=== PATIENT | male | born 1970 | race Caucasian/White ===

== ENCOUNTER 2017-09-26 18:09 | Emergency (ER) | payer MEDICAID, OTHER ==
[2017-09-26] MEDS ORDERED: ASPIRIN 81 MG TABLET, CHEWABLE PO ONE (18:39)
[2017-09-26] MEDS ORDERED: OXYCODONE-ACETAMINOPHEN 5-325 MG TABLET PO ONE (18:40)
[2017-09-26] MEDS ORDERED: NORMAL SALINE 1000 ML 1,000 ML IV PRN (18:44)
--- NOTE | 2017-09-26 18:44 | ER Document Report ---
ED Medical Screen (RME) - General Chief Complaint: Shortness Of Breath Stated Complaint: SHORTNESS OF BREATH,LEG PAIN Time Seen by Provider: 09/26/17 18:39 Notes: 47 years old male presents today with chest heaviness, on and off difficulty in breathing and coughing. Denies any left arm numbness tingling sensation nausea vomiting. Also having chronic pelvic pain. At one point he started crying, because he has not eaten properly for 2 days, he has 4 children with 1 autistic child. Get very minimum assistance from the government, only $200 male while chills per month. States most of the days he goes hungry. TRAVEL OUTSIDE OF THE [place] IN LAST 30 DAYS: No - Related Data Allergies/Adverse Reactions: Penicillins Allergy (Verified 09/26/17 18:15) Physical Exam - Vital signs Vitals: Temp Pulse Resp BP Pulse Ox 98.4 F 92 16 124/86 H 96 09/26/17 18:15 09/26/17 18:15 09/26/17 18:15 09/26/17 18:15 09/26/17 18:15 Course - Vital Signs Vital signs: Temp Pulse Resp BP Pulse Ox 98.4 F 92 16 124/86 H 96 09/26/17 18:15 09/26/17 18:15 09/26/17 18:15 09/26/17 18:15 09/26/17 18:15 Doctor's Discharge - Discharge Referrals: NIKA ENGLISH MD [Primary Care Provider] - Follow up as needed
[2017-09-26 19:15] LABS: ABSOLUTE BASOPHILS # (AUTO) 0.1 10^3/uL (0.0-0.2); ABSOLUTE EOSINOPHILS # (AUTO) 0.2 10^3/uL (0.0-0.6); ABSOLUTE LYMPHOCYTES (AUTO) 2.5 10^3/uL (0.5-4.7); ABSOLUTE MONOCYTES (AUTO) 0.7 10^3/uL (0.1-1.4); ABSOLUTE NEUT (AUTO) 7.2 10^3/uL (1.7-8.2); BASOPHILS % (AUTO) 0.8 % (0-2); HEMATOCRIT 40.9 % (37.9-51.0); HEMOGLOBIN 14.1 g/dL (13.5-17.0); LYMPHOCYTES % (AUTO) 23.2 % (13-45); MEAN CORPUSCULAR HEMOGLOBIN 31.9 pg (27.0-33.4); MEAN CORPUSCULAR HGB CONC 34.4 g/dL (32.0-36.0); MEAN CORPUSCULAR VOLUME 93 fl (80-97); MONOCYTES % (AUTO) 6.4 % (3-13); PLATELET COUNT 183 10^3/uL (150-450); RED BLOOD COUNT 4.42 10^6/uL (4.35-5.55); RED CELL DISTRIBUTION WIDTH 13.8 % (11.5-14.0); SEGMENTED NEUTROPHILS % (AUTO) 67.6 % (42-78); TOTAL CELLS COUNTED % (AUTO) 100 %; WHITE BLOOD COUNT 10.7 10^3/uL (4.0-10.5)
[2017-09-26 19:31] LABS: ALANINE AMINOTRANSFERASE 18 U/L (21-72); ALBUMIN 4.8 g/dL (3.5-5.0); ALKALINE PHOSPHATASE 85 U/L (38-126); ANION GAP 14 (5-19); ASPARTATE AMINO TRANSFERASE 47 U/L (17-59); BILIRUBIN,DIRECT 0.2 mg/dL (0.0-0.4); BLOOD UREA NITROGEN 5 mg/dL (7-20); CARBON DIOXIDE 29 mmol/L (22-30); CHLORIDE 104 mmol/L (98-107); CREATINE KINASE 1311 U/L (55-170); GLUCOSE 112 mg/dL (75-110); POTASSIUM 3.5 mmol/L (3.6-5.0); SODIUM 146.5 mmol/L (137-145); TOTAL PROTEIN 7.9 g/dL (6.3-8.2)
[2017-09-26] MEDS ORDERED: METHYLPREDNISOLONE INJ 125 MG/2 ML SDV IV ONE (19:35)
[2017-09-26] MEDS ORDERED: IPRATROPIUM/ALBUTEROL 0.5-2.5 MG/3 ML AMPUL NEB ONE ×2 (19:35→19:36)
--- NOTE | 2017-09-26 19:38 | ER Document Report ---
ED General - General Chief Complaint: Shortness Of Breath Stated Complaint: SHORTNESS OF BREATH,LEG PAIN Time Seen by Provider: 09/26/17 18:39 Notes: Patient is a 47-year-old male that comes to the emergency department for chief complaint of shortness of breath, cough, pains in his chest, and coughing episodes where he become lightheaded. He has diagnosis of COPD, on no medications or oxygen for this, continues to smoke. Only other reported medical history is arthritis. No first-degree family members with MA. Reports chronic hip/leg pain, denies lower extremity swelling, fever, nausea vomiting. Patient states he is under a lot of stress, has 4 kids with one at cystic child , eats poorly, gets little rest, and is exhausted. He denies any significant weight loss. Father at bedside. TRAVEL OUTSIDE OF THE [place] IN LAST 30 DAYS: No - Related Data Allergies/Adverse Reactions: guaifenesin Allergy (Verified 09/26/17 18:45) Penicillins Allergy (Verified 09/26/17 18:45) Past Medical History - General Information source: Patient - Social History Smoking Status: Current Every Day Smoker Chew tobacco use (# tins/day): No Smoking Education Provided: Yes - <3 min Drug Abuse: Marijuana Lives with: Family Family History: Reviewed & Not Pertinent Patient has suicidal ideation: No Patient has homicidal ideation: No Pulmonary Medical History: Reports: Hx COPD Renal/ Medical History: Denies: Hx Peritoneal Dialysis Past Surgical History: Reports: Hx Appendectomy, Hx Tonsillectomy - Immunizations Hx Diphtheria, Pertussis, Tetanus Vaccination: Yes Review of Systems - Review of Systems Constitutional: No symptoms reported EENT: No symptoms reported Cardiovascular: See HPI Respiratory: See HPI Gastrointestinal: No symptoms reported Genitourinary: No symptoms reported Male Genitourinary: No symptoms reported Musculoskeletal: No symptoms reported Skin: No symptoms reported Hematologic/Lymphatic: No symptoms reported Neurological/Psychological: No symptoms reported Physical Exam - Vital signs Vitals: Temp Pulse Resp BP Pulse Ox 98.4 F 92 16 124/86 H 96 09/26/17 18:15 09/26/17 18:15 09/26/17 18:15 09/26/17 18:15 09/26/17 18:15 - Notes Notes: GENERAL: Patient somewhat disheveled and worn-out appearing. Appears older than his stated age. HEAD: Normocephalic, atraumatic. EYES: Pupils equal, round, and reactive to light. Extraocular movements intact. ENT: Oral mucosa moist, tongue midline. NECK: Full range of motion. Supple. Trachea midline. LUNGS: Decreased breath sounds bilaterally, expiratory wheezes throughout, patient goes into coughing fits where he cannot stop for almost a minute. HEART: Regular rate and rhythm. No murmur ABDOMEN: Soft, non-tender. Non-distended. Bowel sounds present in all 4 quadrants. EXTREMITIES: Moves all 4 extremities spontaneously. No edema, normal radial and dorsalis pedis pulses bilaterally. No cyanosis. BACK: no cervical, thoracic, lumbar midline tenderness. No saddle anesthesia, normal distal neurovascular exam. NEUROLOGICAL: Alert and oriented x3. Normal speech. [cranial nerves II through XII grossly intact]. PSYCH: Normal affect, normal mood. SKIN: Warm, dry, normal turgor. No rashes or lesions noted. Course - Re-evaluation Re-evalutation: Patient with persistent coughing episodes, decreased breath sounds, expiratory wheezes throughout. 09/26/17 20:11 Patient reevaluated, noted to be hypoxic at 88 with mild tachypnea, expiratory wheezes, however he is still alert. He is currently on 2 L nasal cannula. Patient had a coughing episode and appeared to clear sputum, after this his oxygen return to normal levels. EKG without ST segment changes or T-wave inversions in consecutive leads. Chest x-ray unremarkable. CBC, chemistry show mild hypokalemia but generally unremarkable otherwise. CK is elevated at 1300, patient was given IV fluids, will trend to make sure this is not elevating. Renal functioning is normal, urine does not suggest myoglobin. I suspect patient has an elevated CK because of his bad coughing episodes. After magnesium, Solu-Medrol, duo nebs, patient reevaluated. No hypoxia on room air. No coughing. Patient states he has not felt this good in months. Patient ambulated without any difficulty, no tachypnea, tachycardia, or hypoxia. Patient wants to go home. Discussed his elevated CK, this is downtrending but he will need to hydrate and have this rechecked, discussed COPD exacerbation, smoking cessation, and strict return precautions. [facility], he will return if he worsens in any way. Stable at time of discharge. - Vital Signs Vital signs: Temp Pulse Resp BP Pulse Ox 98.4 F 92 18 119/73 95 09/26/17 18:15 09/26/17 18:15 09/27/17 00:01 09/27/17 00:00 09/27/17 00:01 - Laboratory Result Diagrams: 09/26/17 19:01 09/26/17 19:01 Laboratory results interpreted by me: 09/26/17 09/26/17 09/26/17 19:01 19:01 22:10 WBC 10.7 H Sodium 146.5 H Potassium 3.5 L BUN 5 L Glucose 112 H ALT 18 L Creatine Kinase 1311 H 1081 H Discharge - Discharge Clinical Impression: COPD exacerbation, Cough, Wheezing, Elevated CK Condition: Stable Disposition: HOME, SELF-CARE Additional Instructions: You have been evaluated and treated for a COPD exacerbation today. Use the inhaler as prescribed if needed for wheezing, take the prednisone as prescribed. Follow-up with the [place] primary care closely for additional evaluation and management of COPD and for treatment of your hip. Your creatinine kinase level was elevated, this is muscle protein in your bloodstream, I suspect this was from severe coughing, you need to hydrate well over the next couple of weeks to make sure this clears, have your CK level rechecked on blood work when you do followup. Stop smoking. Return if you worsen including difficulty breathing, spiking fever, passing out , or any other concerning or worsening symptoms. Prescriptions: Prednisone 60 mg PO DAILY #15 tablet Referrals: NIKA ENGLISH MD [NO LOCAL MD] - Follow up as needed
[2017-09-26 19:41] LABS: CREATINE KINASE MB 4.05 ng/mL (<4.55)
[2017-09-26 19:44] LABS: TROPONIN I < 0.012 ng/mL
--- NOTE | 2017-09-26 19:50 | RADIOLOGY REPORT (SQ) ---
EXAM DESCRIPTION: CHEST SINGLE VIEW COMPLETED DATE/TIME: 09/26/2017 7:41 pm REASON FOR STUDY: Chest pain COMPARISON: 11/13/2006 EXAM PARAMETERS: NUMBER OF VIEWS: One view. TECHNIQUE: Single frontal radiographic view of the chest acquired. RADIATION DOSE: NA LIMITATIONS: None. FINDINGS: LUNGS AND PLEURA: No opacities, masses or pneumothorax. No pleural effusion. MEDIASTINUM AND HILAR STRUCTURES: No masses. Contour normal. HEART AND VASCULAR STRUCTURES: Heart normal in size. Normal vasculature. BONES: No acute findings. HARDWARE: None in the chest. OTHER: No other significant finding. IMPRESSION: NO ACUTE RADIOGRAPHIC FINDING IN THE CHEST. TECHNICAL DOCUMENTATION: JOB ID: [id number] [employer]- All Rights Reserved Reading location - IP/workstation name: [email or web address]
[2017-09-26] MEDS ORDERED: NORMAL SALINE 1000 ML 1,000 ML IV ONE (20:00)
[2017-09-26] MEDS ORDERED: POTASSIUM CHLORIDE 10 MEQ CAPSULE.ER PO ONE (20:00)
[2017-09-26] MEDS: MAGNESIUM SULFATE/D5W 1 GM/100 ML RTUPB IV SCH ×2 (20:18→21:05)
[2017-09-26 20:27] LABS: APPEARANCE,URINE CLEAR; BILIRUBIN,URINE NEGATIVE (NEGATIVE); COLOR,URINE STRAW; GLUCOSE, URINE NEGATIVE (NEGATIVE); KETONES,URINE NEGATIVE (NEGATIVE); LEUKOCYTE ESTERASE,URINE NEGATIVE (NEGATIVE); NITRITE,URINE NEGATIVE (NEGATIVE); PROTEIN,URINE NEGATIVE (NEGATIVE); URINE SPECIFIC GRAVITY 1.004; UROBILINOGEN,URINE NEGATIVE mg/dL (<2.0)
[2017-09-26 22:37] LABS: VENOUS BLOOD BASE EXCESS 1.1 mmol/L; VENOUS BLOOD HCO3 26.8 mmol/L (20-32); VENOUS BLOOD PCO2 46.6 mmHg (35-63); VENOUS BLOOD PH 7.38 (7.30-7.42)
[2017-09-26] MEDS ORDERED: ALBUTEROL SULFATE HFA (90 MCG/PUFF) 8 GM MDI (1 MDI/ER DISP) IH ONE (23:56)
[2017-09-27 00:11] VITALS: BP 119/73
--- NOTE | 2017-09-27 07:32 | EKG REPORT ---
SEVERITY:- OTHERWISE NORMAL ECG - SINUS TACHYCARDIA : Confirmed by: Kali Spencer MD 27-Sep-2017 07:31:52
== END 2017-09-27 00:19 | disposition home or self-care (01) ==
LOC: ER 18:09
DX: J44.1 Chronic obstructive pulmonary disease with (acute) exacerbation (principal); R05 Cough; R06.2 Wheezing; R79.89 Other specified abnormal findings of blood chemistry; R06.02 Shortness of breath; R07.9 Chest pain, unspecified; R42 Dizziness and giddiness; F17.200 Nicotine dependence, unspecified, uncomplicated
CPT/HCPCS: 93005; 94640 ×2; 99285; 96361; 96375; 96365; 96366; 36415; 82553; 82550; 83735; 85025; 80053; 81001; 84484; 82803; 71045; 93010; J2930; J3475; J7030; J3490; J7620